=== PATIENT | female | born 1975 | race Caucasian/White ===

== ENCOUNTER 2017-01-09 18:26 | Emergency (ER) | payer MEDICAID ==
--- NOTE | 2017-01-09 19:26 | RADIOLOGY REPORT ---
HISTORY: Shortness of breath, weakness. COMPARISON: None. FINDINGS: 2 views of the chest obtained. There is no consolidation. There is no pleural effusion. There is no pneumothorax. The cardiomediastinal silhouette is normal. There is no abnormality of the pulmonar y vessels. There is no focal lung parenchymal nodule. There is no bone lesion. IMPRESSION: No acute findings in the chest. Final Electronic Signature: This report was electronically signed by Per Senior MD on 01/09/2017 7:24 PM. elvin /
[2017-01-09 19:50] LABS: HEMOGLOBIN 13.2 g/dL (12.0-16.0); RED BLOOD COUNT 4.01 X 10^6uL (4.20-6.10); WHITE BLOOD COUNT 5.2 X 10^3uL (3.9-10.7)
[2017-01-09 19:51] LABS: HEMATOCRIT 39.6 % (36.0-48.0); LYMPHOCYTES 46.2 % (20.0-40.0); MEAN CORPUS. HGB CONCENTRATION 33.3 g/dL (32.0-36.0); MEAN CORPUSCULAR HEMOGLOBIN 32.9 pg (29.0-35.0); MEAN PLATELET VOLUME 7.2 fL (7.4-10.4); NEUTROPHILS 43.8 % (54.0-75.0); PLATELET COUNT 264 X 10^3uL (130-440); RED CELL DISTRIBUTION WIDTH 12.6 % (11.5-14.5)
[2017-01-09 19:52] LABS: BASOPHILS 0.6 % (0.0-2.0); EOSINOPHILS 4.1 % (0.0-6.0); LYMPHOCYTES# 2.4 X 10^3uL (0.8-3.8); MONOCYTES 5.3 % (2.0-10.0); NEUTROPHILS# 2.3 X 10^3uL (2.6-6.7)
[2017-01-09 19:53] LABS: EOSINOPHILS# 0.2 X 10^3uL (0.0-0.4); MONOCYTES# 0.3 X 10^3uL (0.2-1.0)
[2017-01-09 19:56] LABS: A/G RATIO 1.3; ALKALINE PHOSPHATASE 88 U/L (38-126); ALT 42 U/L (9-52); AST 40 U/L (14-36); BILIRUBIN, TOTAL 0.5 mg/dL (0.2-1.3); BLOOD UREA NITROGEN 12 mg/dL (7-17); CALCIUM 9.1 mg/dL (8.4-10.2); CHLORIDE 103 mmol/L (98-107); EST GLOMERULAR FILTRATION RATE > 60 mL/min; GLUCOSE 105 mg/dL (70-100); MAGNESIUM 1.7 mg/dL (1.6-2.3); POTASSIUM 3.4 mmol/L (3.5-5.1); SODIUM 141 mmol/L (137-145); TOTAL PROTEIN 7.1 g/dL (6.3-8.2)
[2017-01-09 19:59] LABS: ACETAMINOPHEN < 10.0 ug/mL (10.0-30.0); ETHYL ALCOHOL < 10 mg/dL (<10)
[2017-01-09] MEDS ORDERED: AZITHROMYCIN 250 MG TABLET PO ONE (21:26)
[2017-01-09] MEDS ORDERED: cefTRIAXone SODIUM 1,000 MG/10 ML VIAL ONE (21:26)
[2017-01-09] MEDS ORDERED: NORMAL SALINE 100 ML IV ONE (21:27)
[2017-01-10] MEDS ORDERED: IPRATROPIUM/ALBUTEROL 0.5/3 MG 3 ML AMPUL.NEB IH PRN (06:39)
[2017-01-10] MEDS ORDERED: ACETAMINOPHEN 325 MG TABLET PO PRN (06:39)
[2017-01-10] MEDS ORDERED: HOME MEDICATION LIST NEEDED 1 EA EACH MC ONE (06:39)
[2017-01-10] MEDS ORDERED: NORMAL SALINE 1,000 ML IV SCH (07:00)
[2017-01-10] MEDS ORDERED: D5W IV SCH (07:00)
[2017-01-10] MEDS ORDERED: CEFTRIAXONE SODIUM IV SCH (07:00)
[2017-01-10] MEDS ORDERED: [UNRECOGNIZED DRUG - OTHER] IV SCH (07:00)
[2017-01-10] MEDS ORDERED: NORMAL SALINE MINI IV SCH (07:00)
[2017-01-10] MEDS ORDERED: CLINDAMYCIN IV SCH (07:00)
[2017-01-10] MEDS ORDERED: IPRATROPIUM/ALBUTEROL 0.5/3 MG 3 ML AMPUL.NEB INHALATION ONE (08:28)
[2017-01-10 08:33] LABS: ARTERIAL BLOOD GAS HCO3 30.1 mmol/L (22-26); ARTERIAL BLOOD GAS PCO2 52.4 mmHg (35-45)
[2017-01-10 08:34] LABS: LACTATE 0.61 mmol/L
--- NOTE | 2017-01-10 08:49 | HISTORY AND PHYSICAL ---
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 Avila ER physician. She does abuse SOMA and presented to [facility] for withdrawal but noted to be sick in intake and admitted to SOMA overdose of 10 pills. Also recurrent PNA with ?admission 2 weeks ago and treated with Levaquin as well recent dental work receiving Clindamycin. In ER last nocte hypoxic, CXR "PNA" though to me is hyperexpanded and granular. UDS Benzoa and barbituates. Normal WBC at 5.2. I was asked to admit for pneumonia this morning, note she is obtunded, minimally responsive, Hoffmans finding and asterexis. Wheeze with prolonged expiration. Performed an ABG that shows hypercapnea, normal lactic acid. Neb given with Duoneb and wheezing improved. PAST MEDICAL HISTORY: PNA Soma Abuse SOCIAL HISTORY: Nurse, Soma abuse with chronic pain. MEDICATIONS: Soma, suboxone, gabapentin, wellbutrin, clindamycin; did receive duoneb/rocephin /azithromycin in ER ALLERGIES: PCN VITAL SIGNS: 118/62 HR 78 RR10 T98.4 Pulse Ox: 80%RA and 95%2 liters NC PHYSICAL EXAMINATION: No J/An/Cy/Cl/LA, neck supple No neck masses/bruits R pupil > L, minimally reactive to light, fundi normal RRR polyphonic wheeze, prolonged exp phase Soft non tender abdomen Deras/asterexis Assessment and Plan - Date of Encounter Date of Encounter: 01/10/17 (1) Encephalopathy acute Status: Acute Assessment and plan: likely related polydrug OD with Klonopin/Barbituate/Soma, now hypercapnea. Tylenol level not elevated last nocte. Liased with Transfer line at [facility] and spoke with Dr. Jeaneth Cervantes, she will accept to stepdown unit for monitoring/BiPAP and if needed intubation. Patient current not hypopneic, on simple mask, vitals otherwise stable. Current Visit: Yes (2) Polydrug abuse Status: Acute Assessment and plan: overdose with Soma/Klonopin/Barbituate, hypercapnea likely related to some resp depression and possible RAD, stable currently on O2 and nebs, not feel she has pneumonia but could have aspirated with encephalopathy Current Visit: Yes (3) Overdose Status: Acute Qualifiers: Encounter type: initial encounter Current Visit: Yes (4) Obstructive lung disease Status: Acute Qualifiers: COPD type: chronic bronchitis Assessment and plan: possible asthma possible aspiration, did receive Clindamycin Current Visit: Yes - Time Spent With Patient Total time spent with greater than 50% in coordination of care (as documented) at patient's floor/unit and/or counseling patient: Greater than 35 minutes
--- NOTE | 2017-01-10 09:37 | ER PHYSICIAN DOCUMENTATION ---
Physician Documentation [facility] Name:Marii Canales Age:41 yrs Sex:Female :1975 Arrival Date:01/09/2017 Time:18:26 Bed4 Private MD: Sonido Bueno Disposition: 01/10 07:09 Chart complete. tl1 Disposition: 01/10/17 09:22 Transfer ordered to [facility]. Diagnosis are Prescription Medicine Overdose - : Soma, Hypoxia. - Reason for transfer: Higher level of care. - Accepting physician is Dr. Cervantes [facility] Hospitalist. - Condition is Serious. - Problem is new. - Symptoms are unchanged. COBRA Form completed? Yes Transfer - Mode of Transportation Ambulance HPI: 01/09 19:28 This 41 yrs old Female presents to ER via Private Vehicle with complaints of tl1 Dizziness, Weakness, hypoxemia. 21:55 The patient presents with generalized weakness. Onset: The symptom(s)/episode tl1 began/occurred gradually, 6 hour(s) ago. She recently went through a 5 day "detox" at [facility], for Soma abuse, but after d/c, resumed using Soma. She has been unable to find a detox/rehab facility until [place]. She presented there this afternoon for admission, but was found to be hypoxic with a pulse ox of 76% on RA, and she was referred here for evaluation. She says she was seen 2 weeks ago at the [facility] in [place], diagnosed with LEFT LL PNEUMONIA, and treated with Levaquin. Since then she has been getting better with only an occasional cough. She has smoked 1/2 PPD of cigarettes for about 20 years.. Historical: - Allergies: PENICILLINS; - Home Meds: 1. suboxone 2. gabapentin oral 3. Wellbutrin Oral 4. Clindamycin Oral - PMHx: None; - PSHx: None; - Ebola Screening: : Patient negative for fever greater than or equal to 101.5 degrees Fahrenheit, and additional compatible Ebola Virus Disease symptoms. Patient denies exposure to infectious person. Patient denies travel to an Ebola-affected area in the 21 days before illness onset. No symptoms or risks identified at this time. . - Immunization history: Flu Vaccine >1 year. - Social history: Smoking status: Patient uses tobacco products, current every day smoker. Patient/guardian denies using alcohol, street drugs, IV drugs, marijuana. ROS: 01/10 06:10 Constitutional: Positive for fatigue, malaise, poor PO intake. tl1 Cardiovascular: Negative for chest pain, edema, orthopnea, palpitations. Respiratory: Negative for cough, dyspnea on exertion, hemoptysis, orthopnea, pleurisy, shortness of breath, sputum production, wheezing. Abdomen/GI: Negative for abdominal pain, vomiting, diarrhea, constipation, abdominal cramps, hematemesis, black/tarry stool, rectal bleeding. : Negative for urinary symptoms. Neuro: Positive for weakness, Negative for altered mental status, gait disturbance, headache, hearing loss, numbness, seizure activity, speech changes, syncope. All other systems are negative. Exam: 06:12 Constitutional: The patient appears in no acute distress, alert, awake, comfortable, tl1 non-toxic, well developed, anxious, emaciated, lethargic, pale, uncomfortable. 06:12 Head/face: Exam is negative for acute changes. 06:12 Eyes: Pupils: equal, round, and reactive to light and accomodation, right pupil is approximately 3 mm(s), left pupil is approximately 3 mm(s). 06:12 ENT: Exam is negative for acute changes. 06:12 Neck: Exam negative for acute changes, Lymph nodes: no appreciated lymphadenopathy. 06:12 Cardiovascular: Rate: normal, Rhythm: regular, Heart sounds: normal, Edema: is not appreciated, JVD: is not appreciated. 06:12 Respiratory: the patient does not display signs of respiratory distress, Respirations: normal, Breath sounds: are normal. 06:12 Abdomen/GI: Inspection: abdomen appears normal, Bowel sounds: normal, Palpation: abdomen is soft and non-tender. 06:12 Back: CVA tenderness, is absent. 06:12 Neuro: Exam negative for acute changes, Orientation: is normal, to person, place, time & situation. Mentation: is normal, Memory: is normal, Cranial nerves: Motor: moves all fours, Sensation: Gait: is steady, at a normal pace, without difficulty, appropriate for age. Vital Signs: 01/09 18:36 BP 118 / 62 (auto/); sc1 18:55 Pulse Ox 96% ; sc1 19:06 BP 118 / 62; Pulse 67; Resp 15; Temp 98.4; Pulse Ox 80% on R/A; sc1 01/10 01:45 BP 114 / 62; Pulse 70; Resp 18; Pulse Ox 96% on 3 lpm NC; bw2 07:13 BP 106 / 72; Pulse 68; Resp 14; Pulse Ox 99% on 2.5 lpm NC; tg MDM: 01/09 18:55 Patient medically screened. tl1 01/10 06:22 Data reviewed: vital signs, nurses notes, lab test result(s), and as a result, I will tl1 discharge patient. Counseling: I had a detailed discussion with the patient and/or guardian regarding: the historical points, exam findings, and any diagnostic results supporting the discharge/admit diagnosis, lab results, radiology results, the need to transfer to another facility, TO [facility]. Medication response: The patient's symptoms have improved. Response to treatment: the patient's symptoms have markedly improved after treatment, and as a result, I will discharge patient, D/C TO [facility]. 07:06 Physician consultation: Reji Juarez MD was called at 06:30, was contacted at 06:30, tl1 regarding admission, patient's condition, need to evaluate the patient as soon as possible, and will see patient in ED, shortly. ED course: She was persistently somnolent, but was A&OX4 when awakened. She continued to have an O2 REQUIREMENT of 2LPM to keep her oxygen saturations above 90%. I discussed her care with Dr Reji Sommer at [phone] and he kindly agreed to admit her for further evaluation and care.. 01/09 19:54 Order name: CBC AUTO DIF, MDIF/RMOR IF IND; Complete Time: 07:05 EDMS 01/10 07:03 Interpretation: WHITE BLOOD COUNT 5.2; HEMOGLOBIN 13.2; HEMATOCRIT 39.6; PLATELET COUNT tl1 264; NEUTROPHILS 43.8; LYMPHOCYTES 46.2. 01/09 20:00 Order name: COMPREHENSIVE METABOLIC PANEL; Complete Time: 07:05 EDMS 01/10 07:04 Interpretation: Normal. tl1 01/09 20:00 Order name: MAGNESIUM; Complete Time: 07:05 EDMS 01/10 07:04 Interpretation: Normal: MAGNESIUM 1.7. tl1 01/09 20:00 Order name: ETHYL ALCOHOL; Complete Time: 07:05 EDMS 01/10 07:04 Interpretation: Normal: ETHYL ALCOHOL < 10. 1 01/09 20:00 Order name: ACETAMINOPHEN; Complete Time: 07:05 EDMS 01/10 07:04 Interpretation: Normal: ACETAMINOPHEN < 10.0. 1 01/09 20:11 Order name: HCG, SERUM; Complete Time: 07:05 EDMS 01/10 07:04 Interpretation: Normal: HCG, SERUM NEGATIVE. [facility] 01/09 20:16 Order name: URINE DRUG SCREEN, QUAL; Complete Time: 07:05 EDMS 01/10 07:04 Interpretation: Normal Except: BENZODIAZEPINES PRESUMPTIVE POS; BARBITURATES 1 PRESUMPTIVE POS. 01/10 08:34 Order name: ARTERIAL BLOOD GAS; Complete Time: 09:23 EDMS 01/10 09:22 Interpretation: Abnormal: ARTERIAL BLOOD GAS PCO2 52.4; ARTERIAL BLOOD GAS TOTAL CO2 32. 01/10 08:34 Order name: LACTATE; Complete Time: 09:23 EDMS 01/10 09:22 Interpretation: Normal. 01/09 19:28 Order name: CXR 2V [id number]; Complete Time: 07:05 EDMS 01/10 18:39 Interpretation: Looks like an early RLL infiltrate to me, with air bronchograms. I tl1 disagree with radiologist interpretation, which is:, NAD. SEE RADIOLOGIST REPORT. 01/09 19:38 Order name: Oxygen; Complete Time: 19:38 sc1 Dispensed Medications: 01/09 19:30 Drug: NS 0.9% 1000 ml; Route: IV; Rate: bolus; Site: right antecubital; Delivery: sc1 [place] Tubing; 22:30 Follow up: IV Status: Completed infusion 08 12: Drug: cefTRIAXone 1 grams, NS 0.9% 100 ml; Route: IVPB; Infused Over: 30 mins; Site: [facility] right antecubital; 22:29 Follow up: IV Status: Completed infusion 08 12: Drug: Zithromax 500 mg; Route: PO; [facility] 22:30 Follow up: Response: No adverse reaction [facility] 01/10 08:00 Drug: DuoNeb (Albuterol 2.5 mg, Atrovent 0.5 mg); 3 ml; Route: Nebulizer; 09:08 Follow up: Response: No adverse reaction tg Signatures: Hipolito Hayes RN RN tg Laura Bridges RN RN sc1 Denilson Centeno MD MD cd Sonido Avila MD MD 1 [facility]
--- NOTE | 2017-01-10 09:37 | ER NURSING DOCUMENTATION ---
Nurse's Notes [facility] Name:Marii Canales Age:41 yrs Sex:Female :1975 Arrival Date:01/09/2017 Time:18:26 Bed4 Private MD: Diagnosis:Prescription Medicine Overdose-: Soma;Hypoxia Presentation: 01/09 18:53 Acuity: JOSE 3 sc1 18:53 Transition of care: Home. tx1 18:53 Method Of Arrival: Private Vehicle tx1 19:01 Presenting complaint: Patient states: went to [facility] for rehab from [facility]. They will sc1 not admit her tonight due to hypoxia. Notified ED Physician of patient's arrival and CC Dr. Avila notified. 01/10 07:13 Time Last Known Well for patient was NA. No acute neurological deficit is noted. bw2 Pre-hospital glucose is not applicable to this patient. Triage Assessment: 01/09 19:07 General: Appears slender, well developed, well nourished, Behavior is drowsy, listless, sc1 pleasant. Historical: - Allergies: PENICILLINS; - Home Meds: 1. suboxone 2. gabapentin oral 3. Wellbutrin Oral 4. Clindamycin Oral - PMHx: None; - PSHx: None; - Ebola Screening: : Patient negative for fever greater than or equal to 101.5 degrees Fahrenheit, and additional compatible Ebola Virus Disease symptoms. Patient denies exposure to infectious person. Patient denies travel to an Ebola-affected area in the 21 days before illness onset. No symptoms or risks identified at this time. . - Immunization history: Flu Vaccine >1 year. - Social history: Smoking status: Patient uses tobacco products, current every day smoker. Patient/guardian denies using alcohol, street drugs, IV drugs, marijuana. Screenin:07 Infectious Disease Risk None. Abuse screen: Denies threats or abuse. Nutritional sc1 screening: No deficits noted. 01/10 07:18 Fall Risk No fall in past 12 months (0 pts). No secondary diagnosis (0 pts). IV access tg (20 points). Total Montgomery Fall Scale indicates High Risk Score (45 or more points). Fall prevention measures have been instituted. Side Rails Up X 2 Placed Close to Nursing Station Frequent Obs/Assessments Occuring As available patient and family educated on Fall Prevention Program and Strategies. Assessment: 01/09 18:59 Pain: Denies pain. Neuro: Level of Consciousness is obeys commands, stuporous, Oriented sc1 to person, place, time, event, Auto Design Detailer are equal bilaterally Reports states she took 8 Soma pills last night at 1am and has not had any since then. 01/10 01:30 Reassessment: [facility] contacted about the possibility of picking up pt and her bw2 receiving oxygen while at their facility. [facility] is unable to take pt at this time, they will contact their MD in morning to see if pt is appropriate for their facility . 01:43 Reassessment: pt pulled out IV. MD aware. no new orders. will continue to monitor. . bw2 04:05 Reassessment: pt sleeping. no distress noted. will continue to monitor . bw2 05:36 Reassessment: pt ambulated to bathroom with standby assist. pt was alert and oriented . bw2 07:14 Reassessment: Report from CATRINA Blanco. Pt is sleeping, rouses to loud voice but then tg drifts back to sleep. VS stable. Pt in no distress. Per Cj and Dr. Avila, pt goes through phases of activity, being awake and alert, and phases of drowsiness, as she is now. . 07:19 Reassessment: Call light in reach. tg 07:37 Reassessment: PT sleeping, VS stable. CATRINA Blanco, called report to M/S Rn at 0710. M/S tg staff is waiting to tile picker patient until Dr. Juarez has completed his assessment. . 09:03 Reassessment: Pt obtunded. Pt has been examined by Dr. Juarez (who venecia the ABG). Per tg Dr. Juarez, pt is not appropriate for admission to [facility] med[facility]surg floor, and will be transferred to [facility]. Dr. Juarez spoke with [facility] staff who reported that pt OD'd on Soma last night upon arriving at their facility. . 09:15 Reassessment: Patient appears in no apparent distress at this time. Patient states tg symptoms have not improved. Pt sleeping, unable to answer questions or open eyes. Does react to loud noise, does react to painful stimuli- during IV access attempt, pt flinched when needle was inserted. Pt continues to have regular, even respirations. . 09:29 Reassessment: Pt awake, lethargic, responding to EMS instructions. . tg Vital Signs: 01/09 18:36 BP 118 / 62 (auto/); sc1 18:55 Pulse Ox 96% ; sc1 19:06 BP 118 / 62; Pulse 67; Resp 15; Temp 98.4; Pulse Ox 80% on R/A; sc1 01/10 01:45 BP 114 / 62; Pulse 70; Resp 18; Pulse Ox 96% on 3 lpm NC; bw2 07:13 BP 106 / 72; Pulse 68; Resp 14; Pulse Ox 99% on 2.5 lpm NC; tg ED Course: 01/09 18:34 Patient arrived in ED. dp 18:53 Laura Bridges, CATRINA is Primary Nurse. sc1 18:53 Triage completed. sc1 18:53 Inserted peripheral IV: 20 gauge in right antecubital area and blood collected. sj 18:55 Sonido Avila MD is Attending Physician. tl1 19:00 Patient moved to radiology. pm1 19:06 Notified ED Physician of patient's arrival and chief complaint. Dr. Avila notified. sc1 Allergy Band Placed Arm band placed on Bed in low position Call Light in Reach HOB Elevated Side rails up x2. 19:38 Oxygen Oxygen administration via nasal cannula @ 2L/min. sc1 20:14 Notified ED physician, Dr. Avila of critical lab value for positive for benzo and marilee bw2 with actual value of positive in urine No new orders received at this time. 01/10 00:27 No apparent distress. ambulated to bathroom with standby assist. Patient requests food. bw2 06:24 Valuables Remains with patient Patient has correct armband on for positive bw2 identification. Bed in low position. Call light in reach. Side rails up X2. Diet: breakfast try ordered for pt. 06:33 Reji Juarez MD is Admitting Physician. tl1 07:12 Discontinued IV bleeding controlled, Pt DC'd own IV at some time in the night. tg 07:13 Inserted peripheral IV: 22 gauge in left forearm. tg 07:57 Appears to be sleeping. tg 08:54 Missed attempts: 22 gauge Missed 2 attempts for blood draw in RAC. . tg Administered Medications: 01/09 19:30 Drug: NS 0.9% 1000 ml; Route: IV; Rate: bolus; Site: right antecubital; Delivery: sc1 [place] Tubing; 22:30 Follow up: IV Status: Completed infusion 2 :21 Drug: cefTRIAXone 1 grams, NS 0.9% 100 ml; Route: IVPB; Infused Over: 30 mins; Site: [facility] right antecubital; 22:29 Follow up: IV Status: Completed infusion 2 21:21 Drug: Zithromax 500 mg; Route: PO; 2 22:30 Follow up: Response: No adverse reaction 2 01/10 08:00 Drug: DuoNeb (Albuterol 2.5 mg, Atrovent 0.5 mg); 3 ml; Route: Nebulizer; tg 09:08 Follow up: Response: No adverse reaction tg Outcome: 06:24 Discharge ordered by . tl1 06:33 Decision to Admit by Provider. tl1 07:12 Admitted to Med/surg accompanied by nurse, via stretcher. 2 07:12 Condition: stable 07:12 Report given to Osman FRITZ 09:22 ER care complete, transfer ordered by . 09:29 [facility] Time: January 10, 2017 at 09:00 Patient's face sheet was faxed to accepting facility. Face Sheet included patient's name, address, age, gender, contact information and insurance information. Patient will be transported by: [facility] ground. Nurse and Physician Charting and Notes were sent to Accepting Facility. All tests and/or procedures with results, if applicable, were sent to accepting facility. 09:29 Condition: improved 09:29 Discharge Assessment: Patient confused, lethargic. 09:29 Instructed on need for transfer 09:36 Patient left the ED. tg 09:45 Transferred: Report called to: CATRINA Valentin tg Signatures: Hipolito Hayes RN RN tg Laura Bridges RN RN sc1 Denilson Centeno MD MD cd Lucy Mcclain 1 Sonido Avila MD MD 1 Talia Montana, Cj bw2 Julisa Spencer
[2017-01-11] MEDS ORDERED: AZITHROMYCIN 250 MG TABLET PO SCH (09:00)
== END 2017-01-10 09:37 | disposition short-term general hospital (02) ==
LOC: ER 18:26
DX: R09.02 Hypoxemia (principal); R06.89 Other abnormalities of breathing; R53.1 Weakness; T42.8X4A Poisoning by antiparkinsonism drugs and other central muscle-tone depressants, undetermined, initial encounter; T42.4X4A Poisoning by benzodiazepines, undetermined, initial encounter; T42.3X4A Poisoning by barbiturates, undetermined, initial encounter; R53.83 Other fatigue; R53.81 Other malaise; F17.210 Nicotine dependence, cigarettes, uncomplicated; Z79.899 Other long term (current) drug therapy; Z99.89 Dependence on other enabling machines and devices; Z99.81 Dependence on supplemental oxygen; Z74.3 Need for continuous supervision
CPT/HCPCS: 71020; 80053; 80305; 80320; 80329; 82803; 83605; 83735; 84703; 85025; 94640; 96361; 96365; 99285; A0425; A0428; J0696; J7620; Q0144